=== PATIENT | male | born 1935 | race Caucasian/White ===

== ENCOUNTER → 2020-12-04 | Outpatient (CLI) | payer OTHER ==
[~2020-12-04] MED LIST: ATIVAN1 MG PO; CATAPRES-TTS 11 EACH TP; CLOTRIMAZOLE-BE30 ML TP; CRESTOR 10 MG T10 MG PO; ECOTRIN81 MG PO; FLONASE 0.05% N16 GM; GLIPIZIDE5 MG PO; GLUCOTROL 10 MG10 MG PO; IMDUR ER TAB 3030 MG PO; LANTUS INS100 UTS/M1 SQ; LANTUS100 UNIT/1 SQ; LOPRESSOR 25 MG25 MG PO; LOPRESSOR 50 MG50 MG PO; NAPROSYN500 MG PO; NEURONTIN 400400 MG PO; NORVASC 5 MG TAB5 MG PO; PROTONIX 20 MG20 MG PO; PROTONIX40 MG PO; TOLTERODINE TART4 MG PO; TOPROL XL25 MG PO; ZYRTEC10 M3 PO
== END ==
LOC: HEART 5 11-30 08:28
DX: R07.89 Other chest pain (principal); I25.10 Atherosclerotic heart disease of native coronary artery without angina pectoris
CPT/HCPCS: 78452; A9502; J2785

== ENCOUNTER 2021-05-19 13:34 | Emergency (ER) | payer OTHER ==
[2021-05-19 14:27] LABS: HEMOGLOBIN 12.9 gm/dl (14.0-17.5); RED BLOOD COUNT 4.35 M/UL (4.20-5.50); WHITE BLOOD COUNT 6.2 K/UL (4.5-11.0)
[2021-05-19 14:48] LABS: BUN/CREATININE RATIO 15 (0-10)
== END 2021-05-19 17:26 | disposition home or self-care (01) ==
LOC: ER1 13:34
PROVIDERS: Physician Assistant
DX: U07.1 COVID-19 (principal); I12.9 Hypertensive chronic kidney disease with stage 1 through stage 4 chronic kidney disease, or unspecified chronic kidney disease; E11.22 Type 2 diabetes mellitus with diabetic chronic kidney disease; R53.1 Weakness; E78.5 Hyperlipidemia, unspecified
CPT/HCPCS: 36600; 71045; 80053; 81001; 82550; 82553; 82803; 83874; 84484; 85025; 93005; 99285; U0002

== ENCOUNTER 2021-11-30 14:22 | Emergency (ER) | payer OTHER ==
[~2021-11-30 14:22] MED LIST changes: +AZITHROMYCIN500 MG PO; -CATAPRES-TTS 11 EACH TP; +CEFUROXIME500 MG PO; +CLONIDINE1 EAC2 TD; +CRESTOR10 MG PO; +HYDRALAZINE HCL50 MG PO; +ISOSORBIDE MONO60 MG PO; +LINZESS290 MCG PO; +LOSARTAN POTASS50 MG PO; +METOPROLOL SUCC50 MG PO; +PAROXETINE HCL20 MG PO; +PRESERVISION A1 EACH PO; +RANOLAZINE ER500 MG PO; +STOOL SOFTENER100 MG PO; +UNISOM50 MG PO; +VITAMIN D350 MC3 PO
[2021-11-30 14:51] LABS: HEMOGLOBIN 11.2 gm/dl (14.0-17.5); RED BLOOD COUNT 3.72 M/UL (4.20-5.50); WHITE BLOOD COUNT 8.1 K/UL (4.5-11.0)
[2021-11-30 15:24] LABS: BUN/CREATININE RATIO 17 (0-10)
[2021-11-30] MEDS ORDERED: CLOPIDOGREL75 MG PO (18:38)
[2021-11-30] MEDS ORDERED: BRILINTA90 MG PO (18:39)
[2021-11-30] MEDS ORDERED: NITROGLYCERIN0.4 MG SL (18:42)
== END 2021-11-30 19:20 | disposition home or self-care (01) ==
LOC: ER1 14:22
DX: R07.89 Other chest pain (principal); I50.9 Heart failure, unspecified; E11.9 Type 2 diabetes mellitus without complications; K21.9 Gastro-esophageal reflux disease without esophagitis
CPT/HCPCS: 71046; 80053; 82550; 82553; 84484; 85025; 93005; 99285